=== PATIENT | female | born 1985 | race African-American/Black ===

== ENCOUNTER 2020-08-09 01:30 | Emergency (ER) | payer OTHER ==
[2020-08-09 02:06] LABS: BASOPHIL 0.2 % (0-2); BILIRUBIN NEGATIVE (NEGATIVE); BLOOD NEGATIVE Ery/uL (NEGATIVE); CLARITY CLEAR (CLEAR); COLOR YELLOW (YELLOW); EOSINOPHIL 0.3 % (0-5); GLUCOSE (U) NORMAL (NORMAL); HCT 38.8 % (37.0-47.0); HGB 13.1 g/dl (12.5-16.0); LEUKOCYTES NEGATIVE Leu/uL (NEGATIVE); LYMPHOCYTE 20.9 % (15-48); MCH 28.2 pg (25.0-31.0); MCHC 33.8 g/dL (32.0-36.0); MCV 83.6 fL (78.0-100.0); MONOCYTE 8.7 % (0-12); MPV 9.9 fL (6.0-9.5); NEUTROPHIL 69.6 % (41-80); NITRITE NEGATIVE (NEGATIVE); NRBC 0; PLT 274 K/uL (150-400); PROTEIN NEGATIVE (NEGATIVE); RBC 4.64 M/uL (4.20-5.40); RDW 12.2 % (11.5-14.0); SPECIFIC GRAVITY >=1.030 (1.001-1.030); UROBILINOGEN 0.2 mg/dL (0.2-1.0); WBC 5.9 K/uL (4.0-10.5); pH 5.5 (5.0-9.0)
[2020-08-09 02:22] LABS: ALBUMIN 3.4 g/dL (3.4-5.0); BILIRUBIN - TOTAL 0.6 mg/dL (0.2-1.0); CREATININE 0.5 mg/dL (0.51-0.95); POTASSIUM 3.9 mmol/L (3.5-5.1); TOTAL PROTEIN 7.4 g/dL (6.4-8.2)
[2020-08-09] MEDS ORDERED: COLACE100 MG PO (05:32)
[2020-08-09] MEDS ORDERED: NORCO 5-325 TA1 EACH PO (05:32)
[2020-08-09] MEDS ORDERED: ONDANSETRON ODT4 MG SL (05:32)
== END 2020-08-09 05:43 | disposition home or self-care (01) ==
LOC: FER 01:30
PROVIDERS: Emergency Medicine Emergency Medical Services
DX: R10.31 Right lower quadrant pain (principal); R11.2 Nausea with vomiting, unspecified; R19.7 Diarrhea, unspecified; R74.01 Elevation of levels of liver transaminase levels
CPT/HCPCS: 36415; 80053; 81003; 85025; J1885; J2270; J2405; J7030